=== PATIENT | female | born 1960 | race Hispanic/Latino ===

== ENCOUNTER 2017-07-07 09:24 | Outpatient (CLI) | payer OTHER ==
--- NOTE | 2017-07-07 11:01 | XRay Report ---
Right knee 3 views. History: Right knee pain. Findings: A total right knee prosthesis is demonstrated in satisfactory position. There is mild osteopenia. No lucencies are seen adjacent to the prosthesis. There no soft tissue abnormalities. Impression: Postoperative changes with no significant findings.
== END 2017-07-07 09:25 | disposition home or self-care (01) ==
LOC: SPVIMAG 09:24
PROVIDERS: ATTEND Orthopaedic Surgery Sports Medicine
DX: M85.861 Other specified disorders of bone density and structure, right lower leg (principal); Z96.651 Presence of right artificial knee joint